=== PATIENT | male | born 1980 | race Two or more races ===

== ENCOUNTER 2018-04-01 08:22 | Outpatient (CLI) | payer OTHER ==
[~2018-04-01 08:22] MED LIST: DICY20TA PO; INTESTINEX PO; ZANTAC300 MG PO; ZOVIRAX5 GM TP; ZYRTEC10 MG PO
== END 2018-04-01 08:38 | disposition home or self-care (01) ==
LOC: SONOGRAMA 08:22
DX: R10.11 Right upper quadrant pain (principal)

== ENCOUNTER 2019-03-17 07:45 | Outpatient (CLI) | payer OTHER | END 2019-03-17 07:55 | disposition home or self-care (01) | LOC: RAD 07:45 | DX: J44.1 Chronic obstructive pulmonary disease with (acute) exacerbation (principal) ==

== ENCOUNTER 2022-04-13 09:49 | Outpatient (CLI) | payer OTHER | END 2022-04-13 10:02 | disposition home or self-care (01) | LOC: RAD 09:49 | PROVIDERS: ATTEND Internal Medicine Pulmonary Disease | DX: J44.1 Chronic obstructive pulmonary disease with (acute) exacerbation (principal); J44.9 Chronic obstructive pulmonary disease, unspecified ==

== ENCOUNTER 2022-10-04 12:28 | Outpatient (CLI) | payer OTHER | END 2022-10-04 12:35 | disposition home or self-care (01) | LOC: RAD 12:28 | PROVIDERS: ATTEND General Practice | DX: J20.9 Acute bronchitis, unspecified (principal) ==

== ENCOUNTER 2024-06-24 17:22 | Emergency (ER) | payer OTHER ==
[~2024-06-24] VITALS: Ht 170.2 cm; Wt 90.7 kg
[2024-06-24] MEDS ORDERED: LIPITOR80 MG PO (17:47)
[2024-06-24] MEDS ORDERED: ZESTRIL2.5 MG PO (17:47)
[2024-06-24] MEDS ORDERED: LEVALBUTEROL HCL 0.63 MG/3 ML SOLUTION IH SCH (18:30)
[2024-06-24] MEDS ORDERED: METHYLPREDNISOLONE SOD SUCC 125 MG VIAL IV ONE (18:30)
[2024-06-24 18:45] LABS: HEMATOCRIT 44.1 % (39.0-48.0); HEMOGLOBIN 15.3 g/dL (13-16.00); MEAN CELL VOLUME 88.9 fL (80.0-100.00); MEAN CORPUSCULAR HEMOGLOBIN 30.9 pg (27.00-32.0); MEAN CORPUSCULAR HGB CONC 34.7 g/dl (32.0-36.0); PLATELET COUNT 228 K/uL (150-450); RED BLOOD COUNT 4.96 M/uL (4.00-6.00); RED CELL DISTRIBUTION WIDTH 12.8 % (11.5-14.5)
[2024-06-24] MEDS ORDERED: LEVALBUTEROL HCL 0.63 MG/3 ML SOLUTION IH ONE (21:15)
[2024-06-24 22:35] LABS: ABG PH 7.398 (7.35-7.45); ABG PO2 86.6 mmHg (80-100); ABG pCO2 35.8 mmHg (35-45); SaO2 96.4 %
[2024-06-24 22:36] LABS: BASE EXCESS -2.6 mmol/l; BICARBONATE 21.5 mmol/l (23-25); Tco2 22.6 mmol/l; allen test SATISFACTORY; o2 21 %; puncture site RADIAL LEFT
== END 2024-06-24 22:17 | disposition home or self-care (01) ==
LOC: ER 17:24
PROVIDERS: Emergency Medicine
DX: J45.909 Unspecified asthma, uncomplicated (principal); E78.00 Pure hypercholesterolemia, unspecified; I10 Essential (primary) hypertension; Z20.822 Contact with and (suspected) exposure to COVID-19